=== PATIENT | female | born 1970 ===

== ENCOUNTER 2022-02-05 11:54 | Day surgery (SDC) | payer OTHER ==
[2022-02-05] MEDS ORDERED: LACTATED RINGERS 1,000 ML IV ONE ×2 (11:59→13:54)
[2022-02-05 12:34] LABS: HCG UR QUAL NEGATIVE
--- NOTE | 2022-02-05 12:35 | ANESTHESIA ---
Pre-Anesthesia VS, & Labs - Diagnosis positive cologuard, blood in stool - Procedure colonoscopy, possible hemorrhoid banding Vital Signs: Temp Pulse Resp BP Pulse Ox 36.3 C L 95 16 137/99 H 98 02/05/22 11:59 02/05/22 11:59 02/05/22 11:59 02/05/22 11:59 02/05/22 11:59 Height: 5 ft 3 in Weight (kg): 103.5 kg Body Mass Index: 40.4 BMI Classification: Morbidly Obese - NPO >8 hours - Is Patient ?: No Home Medications and Allergies Home Medications: Ambulatory Orders Valsartan [Diovan] 1 tab PO DAILY 02/04/22 Valsartan [Diovan] 1 tab PO DAILY 02/04/22 Allergies/Adverse Reactions: Allergies Allergy/AdvReac Type Severity Reaction Status Date / Time carrot Allergy Anaphylaxis Verified 02/04/22 12:07 Anes History & Medical History - Anesthetic History Anesthesia Complications: reports: No previous complications - Medical History Cardiovascular: reports: Hypertension, Murmur Pulmonary: reports: CPAP use Gastrointestinal: reports: GI bleed Urinary: reports: Incontinence Skin: reports: Rosacea History of Cancer?: No - Surgical History Gynecologic: reports: section Exam General: Alert, Oriented x3 Dental: WNL Mallampati classification: II Thyromental Distance: greater than 6 cm Respiratory: Lungs clear Cardiovascular: Regular rate Plan Anesthesia Type: Total IV Consent for Procedure(s) Verified and Reviewed: Yes Code Status: Attempt Resuscitation ASA classification: 2-Mild systemic disease Is this case an emergency?: No
[2022-02-05] MEDS ORDERED: PROPOFOL 500 MG/50 ML 500 MG/50 ML VIAL ONE (12:47)
[2022-02-05] MEDS ORDERED: PROPOFOL 200 MG/20 ML VIAL IVP ONE (13:54)
[2022-02-05 14:24] VITALS: BP 144/81
--- NOTE | 2022-02-07 08:28 | ANESTHESIA POST OP EVALUATION ---
Anesthesia Post Eval - Post Anesthesia Eval Vitals: Last Vital Signs Temp 36.7 C 02/05/22 14:23 Pulse 65 02/05/22 14:23 Resp 16 02/05/22 14:23 BP 144/81 H 02/05/22 14:23 Pulse Ox 99 02/05/22 14:23 CV Function Including HR & BP: Stable Pain Control: Satisfactory Nausea & Vomiting: Negative Mental Status: Baseline Respiratory Status: Airway Patent Hydration Status: Satisfactory Anesthesia Complications: None
== END 2022-02-05 11:55 | disposition home or self-care (01) ==
LOC: SDS 11:54
PROVIDERS: ATTEND Surgery
PROC: 0DBN8ZX Excision of Sigmoid Colon, Via Natural or Artificial Opening Endoscopic, Diagnostic (ICD-10-PCS; 2022-02-05)
PROC: 0DBM8ZX Excision of Descending Colon, Via Natural or Artificial Opening Endoscopic, Diagnostic (ICD-10-PCS; principal; 2022-02-05 12:45)
DX: K62.5 Hemorrhage of anus and rectum (principal); R19.5 Other fecal abnormalities; D12.4 Benign neoplasm of descending colon; D12.5 Benign neoplasm of sigmoid colon; I10 Essential (primary) hypertension; E66.01 Morbid (severe) obesity due to excess calories; Z32.02 Encounter for pregnancy test, result negative; Z68.41 Body mass index [BMI] 40.0-44.9, adult
CPT/HCPCS: 45380; 45385; 81025; J7120

== ENCOUNTER 2023-06-25 09:59 | Outpatient (CLI) | payer OTHER ==
--- NOTE | 2023-06-25 10:48 | Sleep Patient Instructions ---
Sleep Center Visit Summary - Patient Visit Information Reason for Visit: Initial consultation - Patient Instructions Additional Instructions: You will continue with CPAP therapy with pressure set at 5-9 cmH2O. A supply prescription will be updated with new CPAP supplier once we have copy of sleep study. She will be doing a sleep study to verify diagnosis and severity since it has been 9 years since last sleep study and weight gain. We encourage you to continue to try to lose weight. Please follow up with the sleep care office after sleep study completed. - Clinic Information Contact: [facility] [address] [place] [address] [email or web address] T: [phone]
--- NOTE | 2023-06-25 10:52 | SLEEP CARE CONSULTATION ---
Information from patient questionnaire entered by Conchita Rush. I have reviewed and concur with the information entered by Conchita Rush. This document represents the service I personally performed and the decisions made by me, Essie Smith ARNP. History of Present Illness Service Date and Time: 06/25/2023 0959 Reason for Visit: New patient, sleep apnea on CPAP therapy Chief Complaint: reports: Unrefreshed sleep, Excessive daytime sleepiness, Other (UPDATE SUPPLIES) Date of Onset: SEVERAL YRS Usual bedtime: RANDOM Time it takes to fall asleep: 10-60MIN Snores at night: Yes Observed to quit breathing while asleep: Yes Sleeps alone due to snoring: No Number of times waking at night: 2 Reasons for waking at night: reports: Bathroom, Other (UNKNOWN) Toss, Turn, or Twitch while sleeping: Yes Recalls having dreams: No Usually gets out of bed at: 6-9AM Feels refreshed in the morning: No Morning headache: No Sleepy or fatigued during the day: Yes Ever fallen asleep while driving: No Takes day naps: Yes Dreams during day naps: No Prior sleep studies: Yes Year and Where: [facility], [id number] Additional HPI information: TAN VICTOR was previously diagnosed to have unknown, AHI unknown, sleep apnea-hypopnea syndrome at [facility] around [id number] and comes in today to establish care for CPAP therapy. She did not bring in a copy of her sleep study but she thinks her last sleep provider told her that she was having about 10 episodes an hour. - Parasomnia Symptoms Ever been unable to move upon waking from sleep: No Walks in sleep: No Talks in sleep: No Ever acted out dreams in sleep: No Ever felt weak in the knees when startled or emotional: No Bothered by creepy, crawly, restless sensations in legs: No Problems with memory or concentration: Yes CPAP Compliance Data - Data Reviewed with Patient Average duration of nightly device use: 7 hours 43 minutes Compliance rate %: 90 (89/90 days used; 03/27/2023-06/24/2023) Current pressure setting (cmH2O): 5-9 Average residual AHI: 0.4 Central apnea: 0 Obstructive apnea: 0.2 Hypopnea: 0.2 Average large leak: 1.2 L/min Compliance data discussion: She has a [employer] Airsense 10 that was last updated 04/27/2015. She is using a [employer] nasal cushion. She has not been getting supplies for a long time, used to use [employer]. Subjective Missed days of use due to: reports: travel, other (fall asleep without mask; irregular schedule) Patient concerns: reports: other (needs new supplies). denies: aerophagia, mask discomfort, air blowing in eyes, mask leak noise, condensation in mask/hose, nasal congestion, dry mouth, nose, throat, epistaxis Observed to snore while using device: No Current pressure setting perceived as: comfortable On therapy, patient: reports: sleeping better, awakening more refreshed, being more awake and alert during the day, more rested overall. 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 Patient is and lives in [place]. Have you smoked in the past 12 months: No Alcohol use: No Caffeine use: Yes Caffeine amount and frequency: 1 CUP 1/ WEEK Family History Family history of sleep disordered breathing: Yes Family Hx Sleep Apnea: Father: Snoring, Sibling: Sleep apnea - Untreated Allergies and Home Medications Known drug allergies: No Drug allergies reviewed: Yes Home medication list reviewed: Yes Allergy and home medication list: Allergies carrot Allergy (Verified 02/04/22 12:07) Anaphylaxis Home Medications Medication Instructions Recorded Confirmed Last Taken Type Valsartan [Diovan] 1 tab PO DAILY 02/04/22 02/04/22 02/03/22 History Cetirizine [ZyrTEC] See Rx Instructions .ROUTE .COMPLEX 06/25/23 06/25/23 Unknown History Multivit-Min/Iron/Folic/Lutein See Rx Instructions .ROUTE .COMPLEX 06/25/23 06/25/23 Unknown History [Multivitamin Women 50 Plus Tab] Review of Systems Weight gain over past 5 years: 50+ Cardiovascular: reports: high blood pressure, irregular heart rate or pulse, leg or foot swelling Urinary: reports: incontinence, frequency Psychiatric: reports: Attention Deficit Hyperactivity, anxiety Ear/Nose/Throat: reports: dry mouth/throat, wisdom teeth removed Endocrine: reports: sluggishness, too hot or cold Musculoskeletal: reports: joint pain Immunologic: reports: allergies to food or environment Physical Exam Vital signs obtained and entered by: CONCHITA Liriano MA Blood Pressure: 159/100 (06/25/23) Cuff size: regular Heart Rate: 63 O2 Saturation: 97 Height: 5 ft 3 in Weight: 233 lb Body Mass Index: 41.3 BMI Classification: Morbidly Obese Neck circumference: 16.25 Impression and Plan 1. Obstructive Sleep Apnea-Hypopnea Syndrome, unknown, with good treatment compliance and good apnea control. On CPAP therapy, the patient has better sleep quality and is more rested overall. Her last sleep study was done in 2014 and we do not have a copy of it. She has also gained over 50 pounds in the last 5 years. I will order another sleep study to verify diagnosis and severity of her sleep apnea. She voiced understanding and agreement with plan of care. We will set her up with a CPAP supplier once I have results of sleep study. Patient's apnea severity and rationale for treatment to reduce apnea, improve sleep quality and reduce cardiovascular and cerebrovascular events was reviewed. I also reviewed the benefit of consistent device use of CPAP for hypertension. 2. Obesity, unspecified. Currently patients BMI is 41.3. Obesity increases the risk of apnea, CPAP pressure requirements and overall health risks especially cardiovascular and diabetes. Thus patient is advised to lose weight. * Continue auto CPAP pressure at 5-9 cmH2O * PSG/HST to verify diagnosis * Update supply prescription once we have copy of sleep study * Notify me if snoring with mask or feeling that the pressure is too much or too little * Attempt to lose weight * Call this office if any problems using CPAP * Return for follow up after sleep study, or sooner if concerns arise Counseling Topics: Spare mask, Weight loss health impact Prescriptions: Device supplies Plan: PSG and followup Visit Type: In Office Time Spent with Patient (minutes): 32 Provider Statement: I spent 100% of the Face to Face Visit with the patient with greater than 50% spent counseling the patient and coordination of care.
[2023-06-25 10:53] VITALS: BP 159/100; O2SAT 97
== END 2023-06-25 10:00 | disposition home or self-care (01) ==
LOC: SC 09:59
PROVIDERS: ATTEND Nurse Practitioner Family
DX: G47.33 Obstructive sleep apnea (adult) (pediatric) (principal); E66.01 Morbid (severe) obesity due to excess calories; Z68.41 Body mass index [BMI] 40.0-44.9, adult
CPT/HCPCS: 99203; 99212

== ENCOUNTER 2023-07-23 20:52 | Outpatient (CLI) | payer OTHER | END 2023-07-23 20:53 | disposition home or self-care (01) | LOC: SC 20:52 | PROVIDERS: ATTEND Nurse Practitioner Family | DX: G47.33 Obstructive sleep apnea (adult) (pediatric) (principal); I10 Essential (primary) hypertension; I49.9 Cardiac arrhythmia, unspecified | CPT/HCPCS: 95810 ==

== ENCOUNTER 2023-08-13 13:27 | Outpatient (CLI) | payer OTHER ==
--- NOTE | 2023-08-13 14:05 | Sleep Patient Instructions ---
Sleep Center Visit Summary - Patient Visit Information Reason for Visit: Sleep study follow-up - Patient Instructions Additional Instructions: You were here for follow up of verifying sleep study and will be continued on CPAP therapy. You will be continued with pressure at 5-9 cmH2O. You should follow up with sleep care in 12 months. You may contact us sooner for any questions or concerns. - Clinic Information Contact: [facility] [address] [place] [id number] [email or web address] T: [phone]
--- NOTE | 2023-08-13 14:22 | SLEEP CARE CONSULTATION ---
Information from patient questionnaire entered by Raissa Rush. I have reviewed and concur with the information entered by Raissa Rush. This document represents the service I personally performed and the decisions made by , Essie Smith ARNP. History of Present Illness Service Date and Time: 08/13/2023 1327 Initial [place] Sleepiness Scale score: 8 (1968) Current [place] Sleepiness Scale score: 7 (08/13/23) Additional HPI information: TAN VICTOR returns for follow up and results of the recently performed polysomnography. The sleep study showed severe obstructive sleep apnea with an average AHI of 58.2 and elsie oxygen saturation of 82%. I explained the pathophysiology behind obstructive sleep apnea. We then spent quite a bit of time discussing different treatment options. For mild obstructive sleep apnea, surgery and oral appliance are alternatives to nasal CPAP therapy but in moderate or severe cases, nasal CPAP is the most effective and reliable treatment. I reviewed the impact of weight changes on sleep apnea and strongly recommended losing weight. The patient will continue with nasal autoCPAP set at 5-9 cmH20. Patient does not drink alcohol. Patient was cautioned about risks of drowsy driving until sleepiness symptoms resolve. Patient denies drowsy driving. Sleep Study - Results Type of Sleep Study: Polysomnography (COMPLETED 07/23/23) Prior sleep studies: Yes Year and Where: [facility], [id number] Polysomnography/Home Sleep Study results: IMPRESSION: The quality of the study is good. The patient had normal sleep efficiency. The sleep architecture was abnormal for sleep fragmentation and reduced amount of time spent in REM and slow wave sleep (N3). Respiratory monitoring showed severe obstructive sleep apnea-hypopnea (AHI = 58.2) associated with frequent arousals, oxyhemoglobin desaturation and mild hypoxia (elsie oxygen saturation of 82%). The respiratory events occurred independently of sleep stage and body position (supine AHI = 59.1; non- supine = 55.00). Snore was moderate to very loud in intensity. There was no significant periodic leg movement of sleep. Cardiac rhythm was normal sinus rhythm without significant arrhythmia. No abnormal behavior (parasomnia) observed during the night. Allergies and Home Medications Known drug allergies: No (as listed) Drug allergies reviewed: Yes Home medication list reviewed: Yes (as listed) Allergy and home medication list: Allergies carrot Allergy (Verified 08/11/23 11:03) Anaphylaxis Home Medications Medication Instructions Recorded Confirmed Last Taken Type Valsartan [Diovan] 1 tab PO DAILY 02/04/22 08/13/23 02/03/22 History Cetirizine [ZyrTEC] See Rx Instructions .ROUTE .COMPLEX 06/25/23 08/13/23 Unknown History Multivit-Min/Iron/Folic/Lutein See Rx Instructions .ROUTE .COMPLEX 06/25/23 08/13/23 Unknown History [Multivitamin Women 50 Plus Tab] Review of Systems Review of systems same as previous: Yes (NO CHANGE) Physical Exam Vital signs obtained and entered by: RAISSA Liriano MA Blood Pressure: 180/101 (RIGHT ARM) Cuff size: long Heart Rate: 76 O2 Saturation: 97 Height: 5 ft 3 in Weight: 237 lb Body Mass Index: 42.0 BMI Classification: Morbidly Obese Impression and Plan 1. Obstructive Sleep Apnea-Hypopnea Syndrome, severe, with elsie oxygen saturation of 82%. She returns after verifying sleep study. She will continue with CPAP therapy. She is in need of a new DME supplier and her machine was last updated in 2014. The patients CPAP is over 5 years old and of reasonable use. Thus, the CPAP will be updated. I will have my medical office coordinator inform of DME options. A DWO prescription will then be made. Compliance guidelines for new device and follow up discussed. Patient's apnea severity and rationale for treatment to reduce apnea, improve sleep quality and reduce cardiovascular and cerebrovascular events was reviewed. I also reviewed the benefit of consistent device use of CPAP for hypertension. 2. Hypoxemia, mild, with a elsie oxygen saturation of 82% and 15 minutes spent under 90%. The baseline oxygen saturation was normal with an average oxygen saturation of 93%. 3. Obesity, unspecified. Currently patients BMI is 42. Obesity increases the risk of apnea, CPAP pressure requirements and overall health risks especially cardiovascular and diabetes. Thus patient is advised to lose weight. * Continue auto CPAP pressure at 5-9 cmH2O * Update machine and supply prescription * Transfer DME * Notify me if snoring with mask or feeling that the pressure is too much or too little * Attempt to lose weight * Call this office if any problems using CPAP * Return for follow up one month after obtaining new CPAP, or sooner if concerns arise Counseling Topics: Spare mask, Weight loss health impact Prescriptions: Auto CPAP, Device supplies Follow up with Sleep Care in: 1 year Visit Type: In Office Time Spent with Patient (minutes): 28 Provider Statement: I spent 100% of the Face to Face Visit with the patient with greater than 50% spent counseling the patient and coordination of care.
[2023-08-13 14:29] VITALS: BP 180/101; O2SAT 97
== END 2023-08-13 13:28 | disposition home or self-care (01) ==
LOC: SC 13:27
PROVIDERS: ATTEND Nurse Practitioner Family
DX: G47.33 Obstructive sleep apnea (adult) (pediatric) (principal); E66.01 Morbid (severe) obesity due to excess calories; Z68.41 Body mass index [BMI] 40.0-44.9, adult
CPT/HCPCS: 99212; 99213